=== PATIENT | female | born 1955 | race African-American/Black ===

== ENCOUNTER 2018-04-21 18:33 | Emergency (ER) | payer OTHER ==
[~2018-04-21] VITALS: Ht 160 cm; Wt 63.5 kg
--- NOTE | ~2018-04-21 | EKG ---
[address] [address] ELECTROCARDIOGRAM REPORT Name: SRIDHAR SOLOMON Room #: [facility] Celena#: [id number] Admission: 04/21/18 Attend Phys: Discharge: 04/21/18 Date of : 57 Report #: [id number] THIS REPORT FOR: //name// 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
[2018-04-21 19:11] LABS: HEMATOCRIT 35.7 % (37.0-47.0); HEMOGLOBIN 12.5 gm/dL (12.0-15.0); MCV 85.7 fL (80.0-100.0); RBC 4.17 mil/uL (4.20-5.00); RDW 13.7 % (10.5-14.5); WBC 5.9 thou/uL (4.0-11.0)
[2018-04-21 19:20] LABS: ANION GAP 8 mmol/L (7-16); BUN 12 mg/dL (7-18); CALCIUM 9.2 mg/dL (8.5-10.1); CHLORIDE 105 mmol/L (98-107); CO2 27 mmol/L (21-32); GLUCOSE 147 mg/dL (74-106); POTASSIUM 3.8 mmol/L (3.5-5.1); SODIUM 140 mmol/L (136-145)
[2018-04-21 19:29] LABS: ALBUMIN 3.9 g/dL (3.4-5.0); SGOT 33 U/L (15-37); SGPT 36 U/L (30-65); TOTAL BILIRUBIN 0.3 mg/dL (<0.1-1.0); TROPONIN-I <0.06 ng/mL (<0.06)
[2018-04-21 19:53] VITALS: BP 140/83
== END 2018-04-21 21:22 | disposition home or self-care (01) ==
LOC: ER 18:33
PROVIDERS: Emergency Medicine
DX: I10 Essential (primary) hypertension (principal); M54.2 Cervicalgia

== ENCOUNTER 2019-04-16 06:48 | Observation (INO) | payer OTHER ==
[~2019-04-16] VITALS: Ht 175.3 cm; Wt 77.1 kg
[2019-04-16 06:49] VITALS: BP 178/74
[2019-04-16] MEDS ORDERED: LOPRESSOR25 PO (07:18)
[2019-04-16 07:26] LABS: ABSOLUTE NEUTROPHILS 1.6 thou/uL (1.4-8.2); EOSINOPHILS 3.1 % (0.0-3.0); HEMATOCRIT 36.8 % (37.0-47.0); HEMOGLOBIN 12.4 gm/dL (12.0-15.0); LYMPHOCYTES 51.9 % (24.0-44.0); MCH 29.7 pg (26.0-34.0); MCHC 33.8 g/dL (28.0-37.0); MONOCYTES 10.6 % (1.0-8.0); PLATELET COUNT 209 thou/uL (150-400); POLYS 33.4 % (36.0-66.0); RBC 4.18 mil/uL (4.20-5.00); RDW 13.8 % (10.5-14.5); WBC 4.9 thou/uL (4.0-11.0)
[2019-04-16 07:32] LABS: ANION GAP 9 mmol/L (7-16); BUN 17 mg/dL (7-18); CALCIUM 9.6 mg/dL (8.5-10.1); CHLORIDE 107 mmol/L (98-107); CO2 26 mmol/L (21-32); CREATININE 0.8 mg/dL (0.6-1.0); GLUCOSE 103 mg/dL (74-106); POTASSIUM 4.3 mmol/L (3.5-5.1); SODIUM 142 mmol/L (136-145)
[2019-04-16 07:42] LABS: ALBUMIN 3.9 g/dL (3.4-5.0); LIPASE 123 U/L (73-393); SGOT 25 U/L (15-37); SGPT 24 U/L (30-65); TOTAL BILIRUBIN 0.2 mg/dL (<0.1-1.0); TOTAL PROTEIN 7.5 g/dL (6.4-8.2); TROPONIN-I <0.06 ng/mL (<0.06)
--- NOTE | 2019-04-16 08:13 | EKG ---
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1955 Requested By: Yeimi Holliday Order Number: [id number] MD: Varinder Johnson Measurements Intervals [place] Rate: 55 P: 43 IN: 169 QRS: 12 QRSD: 93 T: 20 QT: 434 QTc: 416 Interpretive Statements Sinus rhythm Probable left atrial enlargement Probable left ventricular hypertrophy Compared to ECG 04/21/2018 18:45:52 No significant changes Electronically Signed On 04-16-2019 8:13:31 CDT by Varinder Johnson [email or web address] ��������������������������������������������� <ELECTRONICALLY SIGNED> ���������������������������������������� By: Varinder Johnson MD ��������������������������������������������� 04/16/19812 4 4 Varinder Johnson MD /GILDARDO
[2019-04-16 08:52] VITALS: BP 167/106
[2019-04-16 09:23] VITALS: BP 160/77
[2019-04-16] MEDS ORDERED: PRINIVIL20 M1 PO (09:32)
[2019-04-16 09:36] VITALS: BP 151/74
[2019-04-16 14:10] LABS: ALBUMIN 3.9 g/dL (3.4-5.0); TOTAL PROTEIN 7.6 g/dL (6.4-8.2); TROPONIN-I <0.06 ng/mL (<0.06)
[2019-04-16 14:32] LABS: TSH 0.988 uIU/mL (0.358-3.740)
--- NOTE | 2019-04-16 15:19 | 2DMMODE ---
[facility] [address] [place] [address] 2 D/M-MODE ECHOCARDIOGRAM Name: SRIDHAR SOLOMON Room #: 441-P [facility]#: [id number] ������������� Admission: 04/16/19 ������������� Attend Phys: Martín Villalobos, Discharge: ��� ������������� ��� Date of : 57 �������������������� �� Report #: [id number] �������� ��������������������������������������������[id number] THIS REPORT FOR: //name// APPROVED REPORT Study performed: 04/16/2019 12:10:12 EXAM: Comprehensive 2D, Doppler, and color-flow Echocardiogram Patient Location: Bedside Room #: [facility] Status: routine BSA: 1.82 HR: 53 bpm BP: 151/74 mmHg Rhythm: Bradycardia Other Information Study Quality: Good Indications Bradycardia Dyspnea Chest Pain Hypertension/HDD 2D Dimensions RVDd: 34.56 mm IVSd: 12.03 (7-11mm) LVOT Diam: 18.62 (18-24mm) LVDd: 41.60 mm PWd: 12.73 (7-11mm) Ascending Ao: 25.50 (22-36mm) LVDs: 23.01 (25-40mm) Aortic Root: 24.35 mm IVC: 22.00 mm Volumes Left Atrial Volume (Systole) Single Plane 4CH: 42.12 mL Single Plane 2CH: 36.72 mL LA ESV Index: 26.00 mL/m2 Aortic Valve AoV Peak Tom.: 1.38 m/s AO Peak Gr.: 7.64 mmHg LVOT Max P.02 mmHg LVOT Max V: 1.00 m/s OVI Vmax: 1.97 cm2 Mitral Valve [facility] [address] [address] 2 D/M-MODE ECHOCARDIOGRAM Name: SRIDHAR SOLOMON Room #: 441-P [facility]#: [id number] ������������� Admission: 04/16/19 ������������� Attend Phys: Martín Villalobos, Discharge: ��� ������������� ��� Date of : 57 �������������������� �� Report #: [id number] �������� ��������������������������������������������[id number] E/A Ratio: 1.5 MV Decel. Time: 169.96 ms MV E Max Tom.: 1.00 m/s MV A Tom.: 0.65 m/s MV PHT: 49.29 ms IVRT: 106.11 ms Pulmonary Valve PV Peak Tom.: 0.74 m/s PV Peak Gr.: 2.20 mmHg Pulmonary Vein P Vein S: 0.64 m/s P Vein A: 0.25 m/s P Vein D: 0.33 m/s P Vein A Dur.: 83.0 msec P Vein S/D Ratio: 1.94 Tricuspid Valve TR Peak Tom.: 2.47 m/s TR Peak Gr.: 24.38 mmHg PA Pressure: 34.00 mmHg Left Ventricle The left ventricle is normal size. There is normal LV segmental wall motion. Mild concentric left ventricular hypertrophy. The left ventricular systolic function is normal. The left ventricular ejection fraction is within the normal range. LVEF is 60-65%. The left ventricular diastolic function is normal. Right Ventricle The right ventricle is normal size. The right ventricular systolic function is normal. Atria The left atrium size is normal. The right atrium size is normal. Aortic Valve The aortic valve is normal in structure. Trace aortic regurgitation. There is no aortic valvular stenosis. Mitral Valve The mitral valve is normal in structure. Trace mitral regurgitation. No evidence of mitral valve stenosis. Tricuspid Valve The tricuspid valve is normal in structure. There is trace tricuspid regurgitation. Estimated PAP 34 mmHg. There is mild pulmonary [facility] [address] [place] [address] 2 D/M-MODE ECHOCARDIOGRAM Name: SRIDHAR SOLOMON Leigh Room #: 441-P [facility].#: [id number] ������������� Admission: 04/16/19 ������������� Attend Phys: Martín Villalobos, Discharge: ��� ������������� ��� Date of : 57 �������������������� �� Report #: [id number] �������� ��������������������������������������������[id number] hypertension. Pulmonic Valve The pulmonary valve is normal in structure. Trace pulmonic regurgitation. Great Vessels The aortic root is normal in size. IVC is dilated and collapses >50% with inspiration. Pericardium There is no pericardial effusion. <Conclusion> The left ventricle is normal size. LVEF is 60-65%. The aortic valve is normal in structure. Trace aortic regurgitation. The mitral valve is normal in structure. Trace mitral regurgitation. The tricuspid valve is normal in structure. There is trace tricuspid regurgitation. Estimated PAP 34 mmHg. There is mild pulmonary hypertension. The pulmonary valve is normal in structure. Trace pulmonic regurgitation. There is no pericardial effusion. ��������������������������������������������� <ELECTRONICALLY SIGNED> ���������������������������������������� By: Jaime Pineda MD ��������������������������������������������� 04/16/19 1519 1519 151 Jaime Pineda MD /INF
[2019-04-16 17:00] VITALS: BP 167/81
[2019-04-16 19:20] VITALS: BP 150/73
[2019-04-17] VITALS: BP 139/70
--- NOTE | 2019-04-17 03:41 | NUR ---
patient is alert and oriented. patient is room air. patient is up ad little. patient denies chest pain. patient is pending discharge today. patient is resting comfortably in bed. wcm. patient is progressing to goals.
[2019-04-17 03:45] VITALS: BP 152/84
[2019-04-17 06:03] LABS: CHOLESTEROL 181 mg/dL (<200); HDL CHOLESTEROL 51 mg/dL (>40); LDL CHOLESTEROL 115 mg/dL (<100); TC:HDL 3.5 Ratio (Not establshd); TRIGLYCERIDE 77 mg/dL (<150); VLDL 15 mg/dL (<40)
[2019-04-17 06:08] LABS: SERUM ASSESSMENT Clear
[2019-04-17 07:11] VITALS: BP 159/80
--- NOTE | 2019-04-17 10:30 | NUR ---
ASSESSMENT: CM REVIEWED CHART AND MET WITH PATIENT AT THE BEDSIDE. PT IS ALERT AND ORIENTED X4. PT REPORTS SHE LIVES IN AN APT WITH HER DAUGHTER. PT REPORTS HAVING THREE STEPS TO ENTER WITH NO HANDRAILS. PT REPORTS NO STEPS ONCE INSIDE. PT REPORTS SHE AMBULATES INDEPENDENTLY AND IS INDEPENDENT WITH ADLS. PT REPORTS SHE HAS NOT HAD HH IN THE PAST. CM DISCUSSED ROLE. PT WILL LIKELY DISCHARGE TODAY PENDING RESULTS OF HER STRESS TEST.
[2019-04-17] MEDS ORDERED: LISINOPRIL40 MG PO (14:23)
[2019-04-17 14:47] VITALS: BP 159/80
--- NOTE | 2019-04-17 16:30 | NUR ---
Patient assessments and vitals as documented. she denies needs. She will be ready for discharge soon as her family will return to pick her up.
--- NOTE | 2019-04-17 16:42 | EKG ---
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1955 Requested By: Pat Ratliff Order Number: [id number] MD: Varinder Johnson Measurements Intervals [place] Rate: 63 P: 46 [place]: 177 QRS: 15 QRSD: 82 T: 32 QT: 440 QTc: 451 Interpretive Statements Sinus rhythm Compared to ECG 04/16/2019 07:05:54 No significant changes Electronically Signed On 04-17-2019 16:41:57 CDT by Varinder Johnson [email or web address] ��������������������������������������������� <ELECTRONICALLY SIGNED> ���������������������������������������� By: Varinder Johnson MD ��������������������������������������������� 04/17/19 1641 D: 09/935 5 Varinder Johnson MD /GILDARDO
[2019-04-17 17:36] VITALS: BP 159/80
== END 2019-04-17 16:54 | disposition home or self-care (01) ==
LOC: ER 06:48 → 4S 08:26 → EROBS 08:26 → 4S 08:26 → 3W 04-17 13:37
PROVIDERS: Emergency Medicine Emergency Medical Services; Nurse Practitioner; ADMIT Internal Medicine
DX: R07.89 Other chest pain (principal); I10 Essential (primary) hypertension; K75.9 Inflammatory liver disease, unspecified; R00.1 Bradycardia, unspecified; M54.9 Dorsalgia, unspecified; Z79.899 Other long term (current) drug therapy
CPT/HCPCS: 10100